=== PATIENT | female | born 1980 | race Caucasian/White ===

== ENCOUNTER → 2023-05-03 07:33 | Outpatient (REF) | payer BC, SELFPAY | LOC: HWRAD 07:33 | PROVIDERS: ATTENDING PHYSICIAN Physician Assistant Medical | DX: R79.89 Other specified abnormal findings of blood chemistry (principal) | CPT/HCPCS: 76536 ==

== ENCOUNTER → 2024-01-17 08:19 | Outpatient (REF) | payer BC, SELFPAY | LOC: WDC 08:19 | PROVIDERS: ATTENDING PHYSICIAN Physician Assistant Medical | DX: Z12.31 Encounter for screening mammogram for malignant neoplasm of breast (principal) | CPT/HCPCS: 77063; 77067 ==

== ENCOUNTER → 2024-01-21 08:46 | Outpatient (REF) | payer SELFPAY | LOC: HWRAD 08:46 | PROVIDERS: ATTENDING PHYSICIAN Physician Assistant Medical | DX: E78.00 Pure hypercholesterolemia, unspecified (principal) | CPT/HCPCS: 75571 ==

== ENCOUNTER → 2025-01-20 07:51 | Outpatient (REF) | payer BC, SELFPAY | LOC: WDC 07:51 | PROVIDERS: ATTENDING PHYSICIAN Physician Assistant Medical | DX: Z12.31 Encounter for screening mammogram for malignant neoplasm of breast (principal) | CPT/HCPCS: 77063; 77067 ==

== ENCOUNTER 2025-02-05 15:46 | Emergency (ER) | payer BC, SELFPAY ==
[2025-02-05 15:52] VITALS: BP 187/103
[2025-02-05 18:02] VITALS: BP 162/90
--- NOTE | 2025-02-05 18:37 | ED.GENMED ---
History of Present Illness
General
Chief Complaint: Crisis Evaluation
Source: patient
Exam Limitations: none
Time Seen by Provider: 02/05/25 17:43
Nursing documentation reviewed up to this point in time: agreed with
History of Present Illness
History of Present Illness:
Patient is a 44-year-old female with history hypertension who presents to the emergency department with concerns of intrusive thoughts at home. Patient states that on Saturday night she had a very vivid dream. She does not quite remember what
occurred during the dream however she woke up thinking �kill myself�. Patient says she has absolutely no desire to harm herself however has had this �phrase� stuck in her head throughout the past few days. She feels that it is an intrusive thought.
She denies any current suicidal thoughts or ideation. No homicidal ideation. No visual/auditory hallucinations. She denies any past history of mental health disorders or suicide attempts.
Of note � patient states that she did recently start taking atorvastatin 20mg last Saturday under direction of PCP and feels that it may have been related to this new medication. She contacted her primary care provider who told her to discontinue
medication and come to the emergency department for crisis evaluation.
Review of Systems
Review of Systems
Allergies reviewed?: Yes
All Other Systems: ROS reviewed and negative except as documented in HPI and ROS
Phy Exam
Physical Exam
Physical Exam:
Vitals: Hypertensive, otherwise vital signs are stable. Afebrile
General: Patient is well appearing, no acute distress
Skin: Warm and dry, no rashes or lesions
Head: Normocephalic, atraumatic
Throat: Protecting airway
Neck: Normal ROM
Cardiac: Regular rate
Pulm: No apparent respiratory distress
Abdomen: Nondistended
Extremities: No evidence of cyanosis or edema
Neuro: Grossly intact
Psychiatric: Normal affect. No SI or HI. Not responding to any internal stimuli on exam
Course
Orders/Labs/Results
Orders:
Orders
02/05/25 18:02
Crisis Consult Routine
Reason for Consult: intrusive thoughts
Vital Signs
Initial and Last Documented VS:
Initial Vital Signs
Temp Pulse Resp BP Pulse Ox
98.1 F 102 18 187/103 99
02/05/25 15:52 02/05/25 15:52 02/05/25 15:52 02/05/25 15:52 02/05/25 15:52
Last Documented Vital Signs
Temp Pulse Resp BP Pulse Ox
98.1 F 90 16 162/90 99
02/05/25 15:52 02/05/25 18:02 02/05/25 18:02 02/05/25 18:02 02/05/25 18:39
MDM/Problems Addressed
Differential Diagnosis Includes:
Not limited to: anxiety, depression, acute psychosis, suicidal ideations, medication side effect, etc
MDM/Problems Addressed:
44-year-old female presents for crisis valuation given recent intrusive thoughts occurring after vivid dream. No current SI, HI, or visual/auditory hallucinations. No history of psychiatric illness. Vitals and physical exam as above.
It seems that statins can have rare side effect of insomnia, vivid dreams/paranoia. It is unclear if this may be contributing to patient symptoms. However, patient is not actively suicidal, homicidal. There�s no evidence of psychosis. She repeatedly
denies any want to harm herself.
Patient does not meet criteria for inpatient psychiatric management. I do not have any acute safety concerns for patient at this time. I did have crisis come discuss options w/ patient and provide multiple outpatient resources.
I advised atient to discontinue atorvastatin indefinitely until cleared by primary care provider.
Patient is eager for discharge home and will contact therapist for outpatient management.
Very strict return precautions discussed including any concerns for safety.
Chronic conditions affecting care:
N/A
Acute Exacerbation and/or Progression of Chronic Illness:
N/A
*Pulse Oximetry
SaO2: 99
Oxygen Mode of Delivery: Room air
Patient hypoxic: no
*EKG
Interpreted by ED Provider?: NA
*Cylinder Press Operator Apprentice Interpretation
Rate: Cylinder Press Operator Apprentice- N/A
*Critical Care Note
Total Time (30-74mins, 75-104mins- exclusive of procedures): Not Applicable
ED Attending Note
-
Portions of this chart may have been created with voice recognition software.� Occasional wrong word or��sound alike� substitutions may have occurred due to the inherent limitations of voice recognition software.
Discharge Plan
Departure
Patient Disposition: Home (Routine Discharge)
Date of Disposition: 02/05/25
Time of Disposition: 18:51
Patient with high blood pressure during this ER visit?: Yes
Discharge Problem:
Intrusive thoughts, Medication side effect
Instructions: Anxiety in adults - ED (DC), Depression in adults - ED (DC)
Referrals:
Erin Walton PA [Family Provider, General] - Follow up in 5-7 days
Activity Restrictions/Additional Instructions:
RETURN TO THE EMERGENCY DEPARTMENT WITH ANY THOUGHTS OF HARMING YOURSELF OR ANYONE ELSE, VISUAL/AUDITORY HALLUCINATIONS, PERSISTENT MUSCLE CRAMPS, WORSENING IN CURRENT SYMPTOMS, OR ANY SAFETY CONCERNS
-You were given multiple resources today in the emergency department by our crisis department. Please follow-up with [facility] for further management
- As discussed, you should discontinue the Lipitor.
- Follow-up with primary care for further evaluation/management to ensure that your symptoms are improving
Monitor your symptoms closely and return to the emergency department with any acute worsening/new symptoms or any other concerns
Interventions
Interventions:
*Risk Screen - Suicide Last Done: 02/05/25 15:52
*Nursing Disposition Last Done: 02/05/25 19:11
Discharge Date and Time
Discharge Date/Time: 02/05/25 19:11
Print Language: ICELANDIC
== END 2025-02-05 19:11 | disposition home or self-care (01) ==
LOC: EMR 15:46
PROVIDERS: EMERGENCY PHYSICIAN Student in an Organized Health Care Education/Training Program; FAMILY PHYSICIAN Physician Assistant Medical
DX: T50.905A Adverse effect of unspecified drugs, medicaments and biological substances, initial encounter (principal); Y92.9 Unspecified place or not applicable; I10 Essential (primary) hypertension
CPT/HCPCS: 99282